=== PATIENT | male | born 1990 | race Caucasian/White ===

== ENCOUNTER 2022-06-01 11:12 | Emergency (ER) | payer OTHER ==
[2022-06-01 11:28] VITALS: BP 117/67; PULSE 75; RESP 20; TEMP 98; BMI 33.2
[2022-06-01] MEDS ORDERED: TETRACAINE 0.5% HCL 0.6ML DROPPER.BOTTLE OD ONE (12:01)
[2022-06-01] MEDS ORDERED: IBUPROFEN 600 MG TABLET (FP) PO ONE ×2 (12:01→12:06)
[2022-06-01] MEDS ORDERED: FLUORESCEIN NA 1 EA STRIP OD ONE (12:01)
[2022-06-01] MEDS ORDERED: FLUORESCEIN NA 1 EA STRIP ONE (12:04)
[2022-06-01] MEDS ORDERED: TETRACAINE 0.5% OPHTH SOLN 2 ML BOTTLE ONE (12:05)
[2022-06-01] MEDS ORDERED: ERYTHROMYCIN 0.5% OPHTHALMIC OINTMENT 3.5 GM TUBE ONE (12:11)
[2022-06-01] MEDS ORDERED: ERYTHROMYCIN 0.5% OPHTHALMIC OINTMENT 3.5 GM TUBE OD ONE (12:12)
== END 2022-06-01 12:46 | disposition home or self-care (01) ==
LOC: JERFT 11:12
DX: S05.01XA Injury of conjunctiva and corneal abrasion without foreign body, right eye, initial encounter (principal); Y99.8 Other external cause status
CPT/HCPCS: 99283-25

== ENCOUNTER 2025-05-17 04:23 | Emergency (ER) | payer OTHER ==
[2025-05-17 04:39] VITALS: BP 118/82; PULSE 92; RESP 18; BMI 29.8
[2025-05-17 06:32] VITALS: TEMP 98.1
== END 2025-05-17 07:00 | disposition home or self-care (01) ==
LOC: JER 04:23
PROC: 0H91XZZ Drainage of Face Skin, External Approach (ICD-10-PCS; principal; 2025-05-17)
DX: L02.01 Cutaneous abscess of face (principal)
CPT/HCPCS: 99283-25